=== PATIENT | male | born 1980 | race Caucasian/White ===

== ENCOUNTER 2019-07-04 20:34 | Emergency (ER) | payer BC ==
[2019-07-04] MEDS: PENICILLIN V K 250 MG TAB PO (22:01)
[2019-07-04] MEDS: ACETAMINOPHEN 325 MG TAB PO (22:01)
== END 2019-07-04 22:50 | disposition home or self-care (01) ==
LOC: E/R 20:34
DX: K04.7 Periapical abscess without sinus (principal)
CPT/HCPCS: 99283